=== PATIENT | female | born 1995 | race Caucasian/White ===

== ENCOUNTER 2024-08-14 18:40 | Emergency (ER) | payer MEDICAID ==
[2024-08-14 18:46] VITALS: PULSE 122; RESP 20; O2SAT 99
== END 2024-08-14 20:15 | disposition left against medical advice (07) ==
LOC: ER 18:40
DX: J11.1 Influenza due to unidentified influenza virus with other respiratory manifestations (principal); Z53.21 Procedure and treatment not carried out due to patient leaving prior to being seen by health care provider